=== PATIENT | male | born 1975 | race Two or more races ===

== ENCOUNTER 2024-12-29 09:21 | Emergency (ER) | payer OTHER, SELFPAY ==
[2024-12-29] VITALS (9 sets, daily range): BP systolic 141–163; BP diastolic 86–101; PULSE 74–95; RESP 14–18; TEMP -17.7–36.7; O2SAT 96–98; BMI 35.9
--- NOTE | ~2024-12-29 | XR_ITS ---
EXAMINATION: XR CHEST 2 VIEWS HISTORY: chest pain COMPARISON: There are no prior studies available for comparison. FINDINGS: PA and lateral views of the chest are submitted. The lungs are expanded and clear. There is no pleural effusion, pneumothorax, or pulmonary vascular congestion. The heart is normal in size. There is degenerative disc disease of the spine. XR/XR chest 2V IMPRESSION: Clear lungs. Electronically signed by: Vinod Patel MD 12/29/2024 11:00 AM EDT
--- NOTE | ~2024-12-29 | CT_ITS ---
EXAMINATION: CT HEAD WITHOUT IV CONTRAST HISTORY: HTN, headache. TECHNIQUE: Unenhanced helical CT of the head was performed per standard departmental protocol. Coronal and sagittal reformats of the head were also evaluated. One or more of the following techniques was used for dose reduction: Automated exposure control, adjustment of the mA and/or kV according to patient size, use of iterative reconstruction technique. DLP: 789 mGy-cm COMPARISON: There are no prior studies available for comparison. FINDINGS: BRAIN: The brain parenchyma is unremarkable. There is normal langford/white differentiation. The ventricular system is normal in size and configuration. There is no mass effect or midline shift. No intra- or extra-axial fluid collections are identified. SINUSES: There are polyps versus mucous retention cysts in the bilateral maxillary sinuses. The mastoid air cells and middle ear cavities are well pneumatized. ORBITS: The visualized orbits are unremarkable. BONES/SOFT TISSUES: The extracranial soft tissues are unremarkable. The calvarium is intact. No suspicious lytic or sclerotic lesions. CT/CT head/brain wo IV con IMPRESSION: Unremarkable unenhanced head CT. Electronically signed by: Vinod Patel MD 12/29/2024 11:23 AM EDT
[2024-12-29 09:37] LABS: Glucose, Whole Blood 228 mg/dL (60-115)
--- NOTE | 2024-12-29 09:51 | ECG_ITS ---
Test Reason : CP Blood Pressure : */* mmHG Vent. Rate : 76 BPM Atrial Rate : 76 BPM P-R Int : 166 ms QRS Dur : 102 ms QT Int : 390 ms P-R-T Axes : 3 7 63 degrees QTcB Int : 438 ms Normal sinus rhythm Inferior infarct , age undetermined Abnormal ECG No previous ECGs available Referred By: Generic ED Physician Electronically Signed By: MANDY CASTILLO
--- NOTE | 2024-12-29 10:06 | ED.CHESTPAIN ---
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 He reports waking up feeling fine and around 0800 began to have a left-sided headache. No radiation. Reports checking his blood pressure at that time and noted a reading of 220s over 100. Reports taking his amlodipine shortly after this. Reports he typically gets headaches that are associated with his elevated blood pressure. He also endorses dizziness occurring around the same time. Describes this as room spinning sensation, worse with head movements. Admits to intermittent dizzy episodes in the past however they have never been this intense. Admits to difficulty ambulating due to his dizziness. Endorses associated photophobia and nausea. No vomiting. Denies any double vision, blurred vision or vision loss. Also endorses chest pain that began this morning. Pain is localized to the left side of his chest without radiation. Denies fever, chills. He is not on anticoagulation. No history of head injury or trauma. Denies known history of vertigo. Related Data Previous Rx's ?Medication ?Instructions ?Recorded meclizine 25 mg tablet 25 mg PO BID PRN dizziness #20 tabs 12/29/24 Allergies Allergy/AdvReac Type Severity Reaction Status Date / Time No Known Allergies Allergy Verified 12/29/24 09:50 Review of Systems Review of Systems: Constitutional: No fever, chills, fatigue, night sweats, weight changes ENT/Mouth: No ear pain, hearing loss, nasal congestion, sinus pain, rhinorrhea, sore throat Eyes: No eye pain, swelling, redness, vision changes, discharge Cardio: No palpitations, KEY, orthopnea, peripheral edema, +chest pain Pulm: No SOB, cough, sputum, wheezing, dyspnea, hemoptysis GI: No nausea, vomiting, hematemesis, abdominal pain, diarrhea, constipation, hematochezia, melena : No irregular bleeding, dysuria, frequency, urgency, hesitancy, hematuria, flank pain, urinary flow changes, urinary incontinence or retention MSK: No back pain, neck pain, joint pain, myalgias Skin: No lesions, rashes Neuro: No weakness, numbness, paresthesias, LOC, +dizziness, +headache Psych: No anxiety/panic, depression, SI/HI, AH/VH All other systems reviewed and are negative. [facility] Past Medical History Attestation statement: The following information was validated with the patient. Source: old records reviewed and nursing notes reviewed Social History Social History Advance Directives: No Advance Directives Information Provided: Yes Physical Exam Vital Signs: Vital Signs: Last Vital Signs Temp 0 F L 12/29/24 14:01 Pulse 84 12/29/24 14:01 Resp 18 12/29/24 14:01 BP 141/97 H 12/29/24 14:01 Pulse Ox 97 12/29/24 14:01 O2 Del Method Room Air 12/29/24 14:01 BMI result Body Mass Index 35.9 Hypertensive, vitals otherwise WNL General: Well appearing, in no acute distress. Skin: Warm, dry, intact. No rashes or lesions. Head: Normocephalic, atraumatic. No palpable temporal artery. EENT: Hearing is intact b/l. Conjunctiva clear. Sclera is anicteric. PERRLA. EOM intact. Moist mucous membranes.? Neck: Supple without LAD Cardiac: Chest wall symmetric. RRR Lungs: Normal respiratory effort without accessory muscle use. CTA bilaterally. No rales, rhonchi, or wheezes.? Ext: Upper and lower extremities atraumatic, without tenderness, deformity, swelling or erythema Neuro: AOx3. Normal speech. NIH 0. Normal [id number], heel to erazo, rapid UE mvmts. there is fatigable nystagmus. Unable to assess ambulation due to dizziness. Strength 5/5 intact throughout. Sensation intact to light touch. NV intact distally Psych: Appropriate mood and affect. Responds appropriately to questions. NIH Stroke Scale Internal: Initial- Upon Arrival Time: 10:43 Level of Consciousness: Alert Level of Consciousness Questions: Answers both questions correctly Level of Consciousness Commands: Performs both tasks correctly Best Gaze: Normal Visual: No visual loss Facial Palsy: Normal Motor Arm (Right): No drift Motor Arm (Left): No drift Motor Leg (Right): No drift Motor Leg (Left): No drift Limb Ataxia: Absent Sensory: Normal Best Language: No aphasia Dysarthia: Normal Extinction and Inattention: No abnormality Score: 0 Course Course Course Narrative: 1123 -- CBC without leukocytosis or left shift. No thrombocytopenia. No anemia. H&H stable. Chemistry without acute electrolyte abnormality requiring intervention. No SHANELLE. Glucose elevated to 263. No anion gap. Liver function WNL. Troponin WNL at 2.7. Given timing of symptoms to presentation, will repeat for delta. Negative COVID, flu, RSV. Chest x-ray without infiltrate or consolidation to suggest pneumonia. EKG without acute ischemic changes. CT head pending. > treated with IV fluids, meclizine and migraine cocktail > will re-evaluate 1335 -- Delta troponin flat. CT head/brain without bleed. On re-evaluation, patient reports complete resolution of headache and dizziness after IV fluids and medication. I have watched him ambulating with steady gait to the bathroom, denies any difficulty ambulating. No ataxia. I feel he is stable for discharge home and he is agreeable. will send meclicine to pharmacy. Patient has remained stable throughout ED visit today. Discussed worrisome signs and symptoms and when to return to the ED. All questions answered at this time. Patient is agreeable with disposition and stable for discharge. Medications Administered Discontinued Medications Generic Name Dose Route Start Last Admin Trade Name Freq PRN Reason Stop Dose Admin Diphenhydramine HCl 25 mg 12/29/24 11:21 12/29/24 11:39 Diphenhydramine Hcl 50 Mg/Ml Vial IVPUSH 12/29/24 11:22 25 mg ONCE ONE Administration Sodium Chloride 1,000 mls @ 999 mls/hr 12/29/24 10:45 12/29/24 12:16 Ns IV 12/29/24 11:45 Infused .Q1H1M ZOE Infusion Ketorolac Tromethamine 30 mg 12/29/24 11:21 12/29/24 11:39 Ketorolac Tromethamine 30 Mg/Ml Vial IVPUSH 12/29/24 11:22 30 mg ONCE ONE Administration Meclizine HCl 25 mg 12/29/24 10:42 12/29/24 11:19 Meclizine Hcl 25 Mg Tablet PO 12/29/24 10:43 25 mg ONCE ONE Administration Metoclopramide HCl 10 mg 12/29/24 11:21 12/29/24 11:39 Metoclopramide Hcl 10 Mg/2 Ml Vial IVPUSH 12/29/24 11:22 10 mg ONCE ONE Administration Medical Decision Making Medical Decision Making [facility] Narrative: 49-year-old male with past medical history significant for HTN and DM presents to the ED today for evaluation of elevated blood pressure readings, headache and dizziness on waking this morning. Hypertensive, vitals are otherwise WNL. Exam is nonfocal, cerebellum is intact. There is fatigable nystagmus on exam. Differential diagnoses includes: viral syndrome, anemia, electrolyte abnormality, hypoglycemia, DKA, orthostatic hypotension, dehydration, medication side effect, BPPV vs labrynthitis. Hypertension, hypertensive urgency versus emergency. No red flag features for central vertigo to include gradual onset, vertical/bidirectional or nonfatigable nystagmus, focal neurologic findings on exam (including inability to ambulate). Presentation not consistent with an acute [employer]ERSON[employer]PUT[employer]WORK [employer]ST infection, vertebral basilar artery insufficiency, cerebellar hemorrhage or infarction,?intracranial mass or bleed, temporal lobe epilepsy,?MS, trauma, complex migraine headache. I have also considered ACS, arrhythmia, PE (PERC 0), pneumonia, UTI. Plan: labs, ekg, viral swabs, CXR, UA, CT head, trial of IVF +meclizine, supportive care, serial reassessment Differential Diagnosis Differential Diagnoses: The differential diagnosis associated with the presentation includes As above Admission/Observation Not indicated Lab Data [facility] Lab Attestation statement: I reviewed the patient's lab results. As above 12/29/24 10:49 12/29/24 10:11 Labs: Lab Results 12/29/24 12/29/24 12/29/24 Range/Units 09:30 10:11 10:49 WBC 9.9 (4.8-10.8) X10*3/uL RBC 5.37 (4.60-5.80) X10*6/uL Hgb 16.5 (14.0-18.0) g/dl Hct 45.0 (42.0-52.0) % MCV 83.8 (80.0-98.0) fL MCH 30.7 (27.0-33.0) pg MCHC 36.7 H (31.0-36.0) g/dl RDW 12.3 (11.0-16.0) % Plt Count 317 (160-400) X10*3/uL MPV 10.4 (9.4-12.4) fL Immature Gran % (Auto) 0.4 (0.0-0.4) % Neut % (Auto) 78.8 H (45-73) % Lymph % (Auto) 14.5 L (20-40) % [place] % (Auto) 5.4 (2-11) % Eos % (Auto) 0.4 (0-4) % Baso % (Auto) 0.5 (0-2) % Lymph # (Auto) 1.4 (1.2-4.9) X10*3/uL [place]ee # (Auto) 0.5 (0.1-1.2) X10*3/uL Eos # (Auto) 0.0 (0.0-0.4) X10*3/uL Baso # (Auto) 0.1 (0.0-0.2) X10*3/uL Abs Immat Gran (auto) 0.04 H (0.00-0.03) X10*3/uL Absolute Neuts (auto) 7.8 (2.0-8.3) x10*3/uL Absolute Nucleated RBC 0.000 (0.0-0.012) X10*3/uL Nucleated RBC % (auto) 0.0 (0.0-0.2) /100WBC Sodium 137 (135-145) mmol/L Potassium 3.4 (3.3-5.1) mmol/L Chloride 103 (96-108) mmol/L Carbon Dioxide 25 (22-29) mmol/L Anion Gap 12 (12-20) BUN 13 (9-16) mg/dL Creatinine 0.81 (0.5-1.4) mg/dL Estim Creat Clear Calc 130.8 Estimated GFR > 60 POC Glucose 228 H (60-115) mg/dL Random Glucose 263 H (60-115) mg/dL Calcium 9.1 (8.4-10.2) mg/dL Magnesium 1.8 (1.6-2.6) mg/dL Total Bilirubin 0.4 (0.0-1.0) mg/dL AST 21 (5-37) U/L ALT 32 (0-40) U/L Alkaline Phosphatase 76 (39-117) U/L Troponin I High Sens 2.7 (<3.5-35.0) ng/L Total Protein 6.8 (6.5-8.0) g/dL Albumin 4.1 (3.5-5.0) g/dL Influenza Type A (PCR) NEGATIVE (Negative) Influenza Type B (PCR) NEGATIVE (Negative) RSV RNA Qual (PCR) NEGATIVE (Negative) SARS-CoV-2 RNA (RT-PCR) NEGATIVE (Negative) 12/29/24 Range/Units 12:49 WBC (4.8-10.8) X10*3/uL RBC (4.60-5.80) X10*6/uL Hgb (14.0-18.0) g/dl Hct (42.0-52.0) % MCV (80.0-98.0) fL MCH (27.0-33.0) pg MCHC (31.0-36.0) g/dl RDW (11.0-16.0) % Plt Count (160-400) X10*3/uL MPV (9.4-12.4) fL Immature Gran % (Auto) (0.0-0.4) % Neut % (Auto) (45-73) % Lymph % (Auto) (20-40) % Hardee % (Auto) (2-11) % Eos % (Auto) (0-4) % Baso % (Auto) (0-2) % Lymph # (Auto) (1.2-4.9) X10*3/uL Hardee # (Auto) (0.1-1.2) X10*3/uL Eos # (Auto) (0.0-0.4) X10*3/uL Baso # (Auto) (0.0-0.2) X10*3/uL Abs Immat Gran (auto) (0.00-0.03) X10*3/uL Absolute Neuts (auto) (2.0-8.3) x10*3/uL Absolute Nucleated RBC (0.0-0.012) X10*3/uL Nucleated RBC % (auto) (0.0-0.2) /100WBC Sodium (135-145) mmol/L Potassium (3.3-5.1) mmol/L Chloride (96-108) mmol/L Carbon Dioxide (22-29) mmol/L Anion Gap (12-20) BUN (9-16) mg/dL Creatinine (0.5-1.4) mg/dL Estim Creat Clear Calc Estimated GFR POC Glucose (60-115) mg/dL Random Glucose (60-115) mg/dL Calcium (8.4-10.2) mg/dL Magnesium (1.6-2.6) mg/dL Total Bilirubin (0.0-1.0) mg/dL AST (5-37) U/L ALT (0-40) U/L Alkaline Phosphatase (39-117) U/L Troponin I High Sens 2.7 (<3.5-35.0) ng/L Total Protein (6.5-8.0) g/dL Albumin (3.5-5.0) g/dL Influenza Type A (PCR) (Negative) Influenza Type B (PCR) (Negative) RSV RNA Qual (PCR) (Negative) SARS-CoV-2 RNA (RT-PCR) (Negative) Independent Interpretation I performed an independent interpretation of an: EKG, Plain X-Ray and CT Scan Interpretation: Chest x-ray without infiltrate or consolidation, no pleural effusion CT head without bleed, no mass ekg showing normal sinus rhythm, rate of 76 beats per minute, no acute ischemic changes or ST elevations Radiology Impression Discussion of test interpretation with radiology: I have reviewed the radiologist's reading. Radiologist Impression: Date of Service: 12/29/24 Procedure(s): XR chest 2V Accession Number(s): [id number] cc: Sindi Renee~ EXAMINATION: XR CHEST 2 VIEWS HISTORY: chest pain COMPARISON: There are no prior studies available for comparison. FINDINGS: PA and lateral views of the chest are submitted. The lungs are expanded and clear. There is no pleural effusion, pneumothorax, or pulmonary vascular congestion. The heart is normal in size. There is degenerative disc disease of the spine. XR/XR chest 2V IMPRESSION: Clear lungs. Electronically signed by: Vinod Patel MD 12/29/2024 11:00 AM EDT Date of Service: 12/29/24 Procedure(s): XR chest 2V Accession Number(s): [id number] cc: Sindi Renee~ EXAMINATION: XR CHEST 2 VIEWS HISTORY: chest pain COMPARISON: There are no prior studies available for comparison. FINDINGS: PA and lateral views of the chest are submitted. The lungs are expanded and clear. There is no pleural effusion, pneumothorax, or pulmonary vascular congestion. The heart is normal in size. There is degenerative disc disease of the spine. XR/XR chest 2V IMPRESSION: Clear lungs. Electronically signed by: Vinod Patel MD 12/29/2024 11:00 AM EDT RP Independent Historian Clinical information obtained from an independent historian. History obtained from or confirmed by: EMS Prescription Management I considered prescription management with: Other (Meclizine) Chronic Conditions Patient?s care impacted by: Diabetes and Hypertension Social Determinants Patient?s care significantly limited by Social Determinants of Health including: Other Social Determinant of Health Critical Care Time Critical Care Time Critical Care Time: No Discharge Plan Discharge Clinical Impression: Dizziness Patient Disposition: Home, Self-Care Instructions: Vertigo (ED), Dizziness (ED) Additional Instructions: You were evaluated in the ED today for chest pain, dizziness, headache and elevated blood pressure. Your blood work is reassuring. Your cardiac enzyme is normal x2. Your chest xray does not show fluid or pneumonia. The CT scan of your head does not show bleed. Your symptoms improved with IV fluids and medications today. You are able to walk without difficulty. I have suspicion that you may have vertigo. I am sending you home with meclizine. Take this as needed for dizziness. As discussed, please follow up with your primary care provider. If symptoms continue you may warrant treatment with physical therapy. Return with new or worsening symptoms including difficulty speaking or ambulating. In the case of an emergency call 911. Prescriptions: New meclizine 25 mg tablet 25 mg PO BID PRN (Reason: dizziness) Qty: 20 0RF Referrals: Physician,Unknown J [Primary Care Provider, Medical] Interventions: ED Discharge Assessment Last Done: 12/29/24 14:01 Discharge Date/Time: 12/29/24 14:04 Print Language: Unknown
[2024-12-29 10:49] LABS: Alanine Aminotransferase 32 U/L (0-40); Albumin Level 4.1 g/dL (3.5-5.0); Alkaline Phosphatase 76 U/L (39-117); Anion Gap 12 (12-20); Aspartate Amino Transferase 21 U/L (5-37); Bilirubin Total 0.4 mg/dL (0.0-1.0); Blood Urea Nitrogen 13 mg/dL (9-16); Calcium 9.1 mg/dL (8.4-10.2); Carbon Dioxide 25 mmol/L (22-29); Chloride 103 mmol/L (96-108); Creatinine Clr Calc Pharmacy 130.8; Estimated Glomerular Filt Rate > 60; Glucose Random 263 mg/dL (60-115); Magnesium 1.8 mg/dL (1.6-2.6); Potassium 3.4 mmol/L (3.3-5.1); Sodium 137 mmol/L (135-145); Total Protein 6.8 g/dL (6.5-8.0); Troponin-I High Sensitivity 2.7 ng/L (<3.5-35.0)
[2024-12-29 10:53] LABS: Influenza A PCR NEGATIVE (Negative); Influenza B PCR NEGATIVE (Negative); Resp Syncy Virus RNA Qual PCR NEGATIVE (Negative); SARS COV2 PCR INHOUSE NEGATIVE (Negative)
[2024-12-29 10:58] LABS: Basophils Absolute Auto 0.1 X10*3/uL (0.0-0.2); Basophils Percent Auto 0.5 % (0-2); Eosinophils Percent Auto 0.4 % (0-4); Hemoglobin 16.5 g/dl (14.0-18.0); Imm Gran Abs Auto 0.04 X10*3/uL (0.00-0.03); Imm Gran Pct Auto 0.4 % (0.0-0.4); Lymphocytes Absolute Auto 1.4 X10*3/uL (1.2-4.9); Lymphocytes Percent Auto 14.5 % (20-40); Mean Corpuscular HGB Conc 36.7 g/dl (31.0-36.0); Mean Corpuscular Hemoglobin 30.7 pg (27.0-33.0); Mean Corpuscular Volume 83.8 fL (80.0-98.0); Mean Platelet Volume 10.4 fL (9.4-12.4); Monocytes Absolute Auto 0.5 X10*3/uL (0.1-1.2); Monocytes Percent Auto 5.4 % (2-11); Neutrophils Absolute Auto 7.8 x10*3/uL (2.0-8.3); Neutrophils Percent Auto 78.8 % (45-73); Platelet Count 317 X10*3/uL (160-400); Red Blood Count 5.37 X10*6/uL (4.60-5.80); Red Cell Distribution Width 12.3 % (11.0-16.0); White Blood Count 9.9 X10*3/uL (4.8-10.8)
[2024-12-29] MEDS: 0.9 % Sodium Chloride 1,000 ML 999 ML IV (11:19)
[2024-12-29] MEDS: Meclizine HCl 25 MG TABLET PO (11:19)
[2024-12-29] MEDS: Metoclopramide HCl 10 MG/2 ML VIAL IVPUSH (11:39)
[2024-12-29] MEDS: Ketorolac Tromethamine 30 MG/ML VIAL IVPUSH (11:39)
[2024-12-29] MEDS: diphenhydrAMINE HCL 50 MG/ML VIAL 25 MG IVPUSH (11:39)
--- NOTE | 2024-12-29 12:41 | MHC.EDTECH ---
Orth vitals was completed, and the PA aware.
[2024-12-29 13:19] LABS: Troponin-I High Sensitivity 2.7 ng/L (<3.5-35.0)
--- OUTSIDE RECORDS SUMMARY | 2024-12-29 13:27 | XMS_ITS | Clinical Summary ---
Author Organization [address] [place] [address] [place] [phone] Phone Care Team Providers Care Filing Or Registry Clerk Name Role Phone Raleigh Marmolejo MD Primary Care Provider [phone] Allergies No known active allergies Medications spironolactone-hyd roCHLOROthiazide (Aldactazide) 25-25 mg per tablet Take 0.5 tablets (12.5 mg total) by mouth 1 (one) time each day. 45 tablet 3 07/30/19 25 Active blood-glucose meter misc Use daily or as directed for monitoring of diabetes. 1 each 08/11/19 25 026 Active freestyle (FreeStyle Lancets) 28 gauge lancets USE INSTRUCTED to check fsbs daily 90 each 1 08/14/19 25 Active blood sugar diagnostic (FreeStyle Lite Strips) test stripIndications:T ype 2 diabetes mellitus without complication, without long-term current use of insulin (CMS/[facility] V24, CMS/HCC V28),HTN, goal below 130/80,Hyperlipide mario, unspecified hyperlipidemia type USE INSTRUCTED to check fsbs daily 100 strip 1 08/14/19 25 Active metFORMIN (GLUCOPHAGE) 500 mg tablet Take 2 tablets (1,000 mg total) by mouth 2 (two) times a day with meals. 270 each 1 08/22/19 25 Active valsartan (DIOVAN) 80 mg tablet Take 1 tablet (80 mg total) by mouth 1 (one) time each day. 09/03/19 25 Active amLODIPine (NORVASC) 5 mg tablet Take 1 tablet (5 mg total) by mouth 1 (one) time each day. 90 each 3 12/16/19 25 026 Active polyethylene glycol (Golytely) 236-22.74-6.74 -5.86 gram solution Take 4L by mouth once for one dose. May substitue any PEG. Starting at 6PM the night before your procedure drink 1 8oz glasses at your own pace until you complete half of the gallon. Finish 2nd half of the gallon 5 hours before your procedure. 4000 mL 12/04/19 25 Active bisacodyL (DULCOLAX) 5 mg EC tablet Take 2 tablets by mouth right before beginning bowel prep. See instructions provided by the office 2 tablet 12/04/19 25 Active Active Problems Problem Noted Date Diagnosed Date Renal cell carcinoma, left ([facility] V24, [facility] V28) 04/07/2024 Rib pain 04/07/2024 Right-sided back pain 04/07/2024 Fatigue 01/08/2024 JOSE (obstructive sleep apnea) 01/08/2024 Assessment & Plan (08/11/2024 5:45 PM EST): Patient has untreated JOSE. Treating JOSE may help with blood pressure control. Referral sent to pulmonology for further evaluation and treatment. No sign of decompensated heart failure. Red flags discussed with patient. Orders: Ambulatory referral to Pulmonology; Future SOB (shortness of breath) 01/08/2024 Malignant neoplasm of left k [place] ([facility] V24, [facility] V28) 12/04/2023 Splenomegaly 12/04/2023 Hyperlipidemia 10/16/2023 Assessment & Plan (08/11/2024 5:45 PM EST): Last LDL 106. Cardiovascular risk and specific lipid/LDL goals reiterated. Orders: Hemoglobin A1c; Future Basic metabolic panel; Future Microalbumin, protein and creatinine with ratio, urine, random; Future glucose blood test strip; Use as instructed Obesity (BMI 30-39.9) 10/16/2023 Pain in both knees 10/16/2023 Type 2 diabetes mellitus wit hout complication, without long-term current use of insulin ([facility] V24, [facility] V28) 10/16/2023 Assessment & Plan (08/11/2024 5:45 PM EST): Patient is to continue metformin 500 mg twice daily. Patient states medication ran out and use prescription was sent to the pharmacy. Checking Your Blood Sugars: Please check your sugars at the following times of day: before breakfast. Write your fingerstick blood sugars down on a log sheet or record book. Bring them to your appointment. Prescription sent for blood sugar supplies and machine. Educated patient on pre and post prandial blood sugar goals of <120 and <170 respectively, as well as an A1c goal of <7% and goal FBG of 90-130. Educated patient on complications associated with uncontrolled diabetes. These include but are not limited to an increased risk of cardiovascular disease, retinopathy, neuropathy, renal disease, increased risk of infections with open wounds and amputations. Diet Recommendation: Patient is maintain a low carb diet to optimize blood sugar levels. Patient is counseled about low calorie diet (avoid sweet drinks/snacks, and replace red meat with chicken and fish and increase salad intake). Activity/Exercise Recommendation: Patient is to attempt exercise daily or at least 3 times a week for 30 min. If able to set aside 2 days of of the week for strength exercise. Recheck A1c in 3 months When to Call your Healthcare Provider If your blood sugar falls below 70 and you do not know why or you become unconscious If you are sick and unable to take liquids because or nausea or vomiting If you have a fever over 101 If your blood sugar is 300 or higher on greater than 3 separate occasions during the same week If you are just unsure what to do Your Action Plan Check blood glucose as directed and write down all results. Review blood pressure medications Check feet for sores every day Continue to work on weight loss with a goal of losing 2-4 pounds per month Increase physical activity Contact the office if you experience any barriers to care such as inability to purchase your medication difficulty getting to your appointments or difficulty understanding your care plan Please get your pneumonia shot Please get your yearly flu shot Orders: POC glucose manually resulted Hemoglobin A1c; Future Basic metabolic panel; Future Microalbumin, protein and creatinine with ratio, urine, random; Future glucose blood test strip; Use as instructed Adenoma of left adrenal gland 10/09/2023 Blood glucose elevated 10/09/2023 Celiac artery stenosis (CMS/HCC V24) 10/09/2023 Fatty liver 10/09/2023 HTN, goal below 130/80 10/09/2023 Assessment & Plan (08/11/2024 5:45 PM EST): The goal of therapy is for systolic BP to be 120, diastolic BP <80, per nephrology Vasquez is control. Patient is to Continue valsartan 160 mg daily, amlodipine 5 mg daily and spironolactone-hydrochlorothiazide 25-25 mg daily. Review medication, side effects ans potential future medication changes. Patient is to continue following up with nephrology for blood pressure monitoring and control. He has an appointment September 03, 2024. Patient is advised to check BP at home and maintain a BP log. He is to call the office if blood pressure more than 140/90, more than a couple of times. Patient is recommended lifestyle changes including 2 g sodium/Dash Diet and regular exercise as tolerated. Orders: Hemoglobin A1c; Future Basic metabolic panel; Future Microalbumin, protein and creatinine with ratio, urine, random; Future glucose blood test strip; Use as instructed Left kidney mass 10/09/2023 Immunizations Name Administration Dates Next Due Tdap Tetanus diptheria acell ular pertussis (Boostrix; Adacel) 7yo and older 08/11/2024 Social History Tobacco Use Types Packs/Day Years Used Date Smoking Tobacco: Never Smokeless Tobacco: Never Tobacco Cessation:Counseling Given: Not Answered Alcohol Use Standard Drinks/Week Comments Yes 0 (1 standard drink = 0.6 oz pur e alcohol) Sex and Gender Information Value Date Recorded Sex Assigned at Not on file Legal Sex Male 11:04 AM EDT Gender Identity Not on file Sexual Orientation Not on file Obstetrics History Last Filed Vital Signs Vital Sign Reading Time Taken Comments Blood Pressure 124/75 09/03/2024 1:24 PM EST Pulse 84 08/11/2024 3:01 PM EST Temperature 36.4 C (97.6 F) 08/11/2024 3:01 PM EST Respiratory Rate 12 08/11/2024 3:01 PM EST Oxygen Saturation - - Inhaled Oxygen Concentration - - Weight 105 kg (231 lb 9.6 oz) 09/03/2024 1:24 PM EST Height 170.2 cm (5' 7 ) 08/11/2024 3:01 PM EST Body Mass Index 36.27 08/11/2024 3:01 PM EST Plan of Treatment Upcoming Encounters Date Type Department Care Team (Late st Contact Info) Description 01/14/2025 9:30 AM EDT Office Visit [facility] Hematology Oncology [address] [place] [address] Kyrie Quijano MD [address] [place] [address] 04/22/2025 2:00 PM EDT Office Visit Nephrology - [place] [address] [place] [address] Ricardo Cruz MD [address] [facility] [address] [place] [address] Health Maintenance Due Date Last Done Comments Diabetes: Annual Foot Exam 1985 Colorectal Cancer Screening: Colonoscopy 02/01/2024 Diabetes: Annual Urine Albumin-Creatinine Ratio (uACR) 02/01/2024 Social Influencers of Health Screening 02/01/2024 Diabetes: Annual Retina Eye Exam 12/04/2024 12/05/2023 Depression Screening 01/07/2025 01/08/2024 Diabetes: Blood Sugar Contro l Test (HGBA1C) 02/15/2025 08/18/2024, 10/10/2023 Diabetes: Annual GFR (Glomerular Filtration Rate) 08/18/2025 08/18/2024 Hypertension/CHF/CAD Annual BMP Blood Test 08/18/2025 08/18/2024 Cholesterol Screening (Lipid Panel) 10/09/2028 10/10/2023 DTaP,Tdap,and Td Vaccines (2 - Td or Tdap) 08/11/2034 08/11/2024 Hepatitis C Screening Completed 10/10/2023 COVID-19 Vaccine Discontinued HIB Vaccines Aged Out No longer eligi ble based on patient's age to complete this topic HIV Screening Discontinued HPV Vaccines Aged Out No longer eligi ble based on patient's age to complete this topic Hepatitis A Vaccines Aged Out No long er eligible based on patient's age to complete this topic Hepatitis B Vaccines Discontinued IPV Vaccines Aged Out No longer eligi ble based on patient's age to complete this topic Influenza Vaccine Discontinued MMR Vaccines Aged Out No longer eligi ble based on patient's age to complete this topic Meningococcal ACWY Vaccine Aged Out N o longer eligible based on patient's age to complete this topic Meningococcal B Vaccine Aged Out No l onger eligible based on patient's age to complete this topic Pneumococcal Vaccine: Pediatrics (0 to 5 Years) and At-Risk Patients (6 to 64 Years) Discontinued RSV Immunization Patients Under 20 months Aged Out No longer eligible based on patient's age to complete this topic Varicella Vaccines Aged Out No longer eligible based on patient's age to complete this topic Procedures Procedure Name Priority Date/Time Associated Diagnosis Comments BASIC METABOLIC PANEL Routine 08/18/2024 1:28 PM EST Type 2 diabetes mellitus without complication, without long-term current use of insulin ([facility] V24, [facility] V28) HTN, goal below 130/80 Renal cancer, left ([facility] V24, [facility] V28) Hyperlipidemia, unspecified hyperlipidemia type HEMOGLOBIN A1C Routine 08/18/2024 1:28 PM EST Type 2 diabetes mellitus without complication, without long-term current use of insulin ([facility] V24, [facility] V28) HTN, goal below 130/80 Hyperlipidemia, unspecified hyperlipidemia type DEPRESSION SCREENING Routine 01/08/2024 DIABETES EYE EXAM Routine 12/05/2023 HEPATITIS C SCREENING Routine 10/10/2023 LIPID PANEL Routine 10/10/2023 from Last 3 Months or Most Recently Relevant to Health Maintenance Results * (ABNORMAL) Hemoglobin A1c (08/18/2024 1:28 PM EST) Hemoglobin A1C 7.6(H) <6.5 % LAB CHEMISTRY METHOD 08/18/2024 10:40 PM EST [facility] Mean Bld Glu Estim. 171 mg/dL LAB CHEMISTRY METHOD 08/18/2024 10:40 PM EST [facility] Blood Venous blood specimen / Unknown Venipuncture / Unknown 08/18/2024 1:28 PM EST 08/18/2024 1:28 PM EST Dave Szymanski [employer] LAB BLOOD ORDERABLES Final R esult [facility] [address] [place] [address], * (ABNORMAL) Basic metabolic panel (08/18/2024 1:28 PM EST) Sodium 134 133 - 145 mmol/L LAB CHEMISTRY METHOD 08/18/2024 4:46 PM [facility] Potassium 3.8 3.5 - 5.5 mmol/L LAB CHEMISTRY METHOD 08/18/2024 4:46 PM [facility] Chloride 102 96 - 110 mmol/L LAB CHEMISTRY METHOD 08/18/2024 4:46 PM [facility] CO2 25 21 - 32 mmol/L LAB CHEMISTRY METHOD 08/18/2024 4:46 PM [facility] Anion Gap 7 3 - 11 LAB CHEMISTRY METHOD 08/18/2024 4:46 PM [facility] Glucose 246(H) 70 - 100 mg/dL LAB CHEMISTRY METHOD 08/18/2024 4:46 PM [facility] BUN 31(H) 5 - 25 mg/dL LAB CHEMISTRY METHOD 08/18/2024 4:46 PM [facility] Creatinine 1.32(H) 0.70 - 1.30 mg/dL LAB CHEMISTRY METHOD 08/18/2024 4:46 PM [facility] eGFR 66 >=60 mL/min/1. 73m2 LAB CHEMISTRY METHOD 08/18/2024 4:46 PM [facility] Comment:Calculation based on the Chronic Kidney Disease Epidemiology Collaboration (CKD-EPI) equation refit without adjustment for race. BUN/Creatinine Ratio 23.5 LAB CHEMISTRY METHOD 08/18/2024 4:46 PM EST [facility] Calcium 9.1 8.5 - 10.5 mg/dL LAB CHEMISTRY METHOD 08/18/2024 4:46 PM EST [facility] Blood Venous blood specimen / Unknown Venipuncture / Unknown 08/18/2024 1:28 PM EST 08/18/2024 1:28 PM EST Dave Szymanski NP LAB BLOOD ORDERABLES Final R esult [facility] [address] [place] [address], * Depression Screening (01/08/2024) [facility] Depression Screening abstracted Result [facility] Historical Provider HEALTH MAINTENANCE Final Result * Diabetes Eye Exam (12/05/2023) [facility] Diabetes: Annual Retina Eye Exam abstracted Result [facility] Historical Provider HEALTH MAINTENANCE Final Result * Hepatitis C Screening (10/10/2023) [facility] Hepatitis C Screening abstracted Result [facility] Provider MD HEALTH MAINTENANCE Final Result * (ABNORMAL) Lipid panel (10/10/2023) [facility] LDL/HDL Ratio 4 0 - 4 Triglycerides 175(A) 0 - 150 mg/dL Cholesterol 197 0 - 200 mg/dL HDL 56 >=40 mg/dL LDL Cholesterol 106(A) 0 - 100 mg/dL Blood Venous blood specimen / Unknown Result [facility] Historical Provider LAB BLOOD ORDERABLES Nadine l Result from Last 3 Months or Most Recently Relevant to Health Maintenance Insurance #[address] [place] [address] [facility] [address] PLAN MEDICAID - [place] Care Teams Filing Or Registry Clerk Relationship Specialty Start Date End Date Raleigh Marmolejo MD [address] [facility] [place] [address] PCP - General 10/24/23
== END 2024-12-29 14:04 | disposition home or self-care (01) ==
PROVIDERS: Physician Assistant Medical; Emergency Provider Emergency Medicine; PCP Internal Medicine
DX: R07.89 Other chest pain (principal); I10 Essential (primary) hypertension; R94.31 Abnormal electrocardiogram [ECG] [EKG]; E11.9 Type 2 diabetes mellitus without complications; R42 Dizziness and giddiness; R11.0 Nausea; R26.2 Difficulty in walking, not elsewhere classified; Z03.818 Encounter for observation for suspected exposure to other biological agents ruled out; Z79.899 Other long term (current) drug therapy
CPT/HCPCS: 0241U; 36415; 70450; 71046; 80053; 82947; 83735; 84484; 85025; 93005; 96361; 96374; 96375; 99285; J1200; J1885; J2765

== ENCOUNTER → 2024-12-29 09:51 | Outpatient (BNV) | payer MEDICAID, SELFPAY | PROVIDERS: Emergency Provider Emergency Medicine; Visit Provider Internal Medicine | DX: R94.31 Abnormal electrocardiogram [ECG] [EKG] (principal); R07.9 Chest pain, unspecified | CPT/HCPCS: 93010 ==

== ENCOUNTER → 2024-12-29 09:58 | Outpatient (BNV) | payer MEDICAID, SELFPAY | PROVIDERS: Emergency Provider Emergency Medicine; Visit Provider Radiology Diagnostic Radiology | DX: R51.9 Headache, unspecified (principal); I10 Essential (primary) hypertension; R07.9 Chest pain, unspecified | CPT/HCPCS: 70450; 71046 ==